=== PATIENT | male | born 1970 | race Two or more races ===

== ENCOUNTER 2020-04-29 11:47 | Emergency (ER) | payer BC, OTHER ==
[~2020-04-29] VITALS: Ht 180.3 cm; Wt 76.8 kg
[~2020-04-29 11:47] MED LIST: BACL10TA2 PO; CYCL10TA3 PO; GABA300C2 PO; MULTCAP11 PO; OMEP20CA3 PO; OXYC1SOL PO; PAXI20TA3 PO; PERC7.5T PO
[2020-04-29 11:48] VITALS: BP 144/79
[2020-04-29] MEDS ORDERED: MAGICMW SSP (12:27)
== END 2020-04-29 12:43 | disposition home or self-care (01) ==
LOC: M ED 11:47
DX: K13.0 Diseases of lips (principal)